=== PATIENT | male | born 1950 | race Caucasian/White ===

== ENCOUNTER 2019-12-05 09:51 | Outpatient (REF) | payer SELFPAY ==
[2019-12-05 10:50] LABS: MANUAL DIFF FLAG NO
[2019-12-05 10:58] LABS: Basophils Percent Auto 0.4 % (0-2); Eosinophils Absolute Auto 0.1 X10*3/uL (0.0-0.4); Eosinophils Percent Auto 1.5 % (0-4); Hematocrit 45.7 % (42-52); Hemoglobin 15.4 g/dl (14.0-18.0); Imm Gran Abs Auto 0.04 X10*3/uL (0.00-0.03); Imm Gran Pct Auto 0.6 % (0.0-0.4); Lymphocytes Absolute Auto 1.1 X10*3/uL (1.2-4.9); Lymphocytes Percent Auto 15.2 % (20-40); Mean Corpuscular HGB Conc 33.7 g/dl (31.0-36.0); Mean Corpuscular Hemoglobin 32.3 pg (27.0-33.0); Mean Corpuscular Volume 95.8 fL (80-98); Mean Platelet Volume 9.7 fL (9.4-12.4); Monocytes Absolute Auto 0.8 X10*3/uL (0.1-1.2); Monocytes Percent Auto 11.4 % (2-11); Neutrophils Percent Auto 70.9 % (45-73); Platelet Count 266 X10*3/uL (160-400); Red Blood Count 4.77 X10*6/uL (4.60-5.80); Red Cell Distribution Width 12.3 % (11.0-16.0); White Blood Count 7.1 X10*3/uL (4.8-10.8)
[2019-12-05 12:02] LABS: Alanine Aminotransferase 22 U/L (0-40); Albumin Level 4.6 g/dL (3.5-5.0); Alkaline Phosphatase 84 U/L (39-117); Anion Gap 13 (12-20); Aspartate Amino Transferase 29 U/L (5-37); Bilirubin Total 1.1 mg/dL (0.0-1.0); Blood Urea Nitrogen 16 mg/dL (9-16); Calcium 9.2 mg/dL (8.4-10.2); Carbon Dioxide 28 mmol/L (22-29); Chloride 103 mmol/L (96-108); Cholesterol 180 mg/dL; Estimated Glomerular Filt Rate > 60; Glucose Fasting 110 mg/dL (60-99); HDL Cholesterol 53 mg/dL; LDL Cholesterol Calculated 114 mg/dl; Potassium 4.9 mmol/l (3.3-5.1); Sodium 139 mmol/L (135-145); Total Protein 7.3 g/dL (6.5-8.0); Triglycerides 65 mg/dL
== END 2019-12-05 09:52 | disposition home or self-care (01) ==
LOC: HO.MANLDS 09:51
PROVIDERS: PCP Physician Assistant; Visit Provider Physician Assistant
DX: Z00.00 Encounter for general adult medical examination without abnormal findings (principal); Z13.6 Encounter for screening for cardiovascular disorders
CPT/HCPCS: 36415; 80053; 80061; 85025

== ENCOUNTER 2021-04-29 09:46 | Outpatient (REF) | payer SELFPAY ==
[2021-04-29 11:05] LABS: MANUAL DIFF FLAG NO
[2021-04-29 11:11] LABS: Basophils Absolute Auto 0.1 X10*3/uL (0.0-0.2); Basophils Percent Auto 0.6 % (0-2); Eosinophils Absolute Auto 0.2 X10*3/uL (0.0-0.4); Eosinophils Percent Auto 2.1 % (0-4); Hematocrit 46.2 % (42.0-52.0); Hemoglobin 15.7 g/dl (14.0-18.0); Imm Gran Abs Auto 0.03 X10*3/uL (0.00-0.03); Imm Gran Pct Auto 0.4 % (0.0-0.4); Lymphocytes Absolute Auto 1.2 X10*3/uL (1.2-4.9); Lymphocytes Percent Auto 15.1 % (20-40); Mean Corpuscular Hemoglobin 32.6 pg (27.0-33.0); Mean Platelet Volume 9.6 fL (9.4-12.4); Monocytes Absolute Auto 0.7 X10*3/uL (0.1-1.2); Neutrophils Absolute Auto 5.8 x10*3/uL (2.0-8.3); Neutrophils Percent Auto 72.8 % (45-73); Platelet Count 247 X10*3/uL (160-400); Red Blood Count 4.81 X10*6/uL (4.60-5.80); Red Cell Distribution Width 12.1 % (11.0-16.0)
[2021-04-29 12:54] LABS: Alanine Aminotransferase 24 U/L (0-40); Albumin Level 4.5 g/dL (3.5-5.0); Alkaline Phosphatase 91 U/L (39-117); Anion Gap 15 (12-20); Aspartate Amino Transferase 29 U/L (5-37); Bilirubin Total 1.5 mg/dL (0.0-1.0); Blood Urea Nitrogen 17 mg/dL (9-16); Calcium 9.8 mg/dL (8.4-10.2); Carbon Dioxide 29 mmol/L (22-29); Chloride 101 mmol/L (96-108); Cholesterol 175 mg/dL; Estimated Glomerular Filt Rate > 60; Glucose Fasting 91 mg/dL (60-99); HDL Cholesterol 56 mg/dL; LDL Cholesterol Calculated 105 mg/dl; Potassium 4.6 mmol/L (3.3-5.1); Sodium 140 mmol/L (135-145); Total Protein 7.3 g/dL (6.5-8.0); Triglycerides 71 mg/dL
== END 2021-04-29 09:47 | disposition home or self-care (01) ==
LOC: HO.MANLDS 09:46
PROVIDERS: PCP Physician Assistant; Visit Provider Physician Assistant
DX: Z00.00 Encounter for general adult medical examination without abnormal findings (principal); Z13.220 Encounter for screening for lipoid disorders
CPT/HCPCS: 36415; 80053; 80061; 85025

== ENCOUNTER 2022-05-03 09:41 | Outpatient (REF) | payer SELFPAY ==
[2022-05-03 11:14] LABS: Estimated Average Glucose 100 mg/dL; Hemoglobin A1c % 5.1 %
[2022-05-03 11:57] LABS: Anion Gap 13 (12-20); Blood Urea Nitrogen 12 mg/dL (9-16); Calcium 9.3 mg/dL (8.4-10.2); Carbon Dioxide 29 mmol/L (22-29); Chloride 103 mmol/L (96-108); Estimated Glomerular Filt Rate > 60; Glucose Random 97 mg/dL (60-115); Potassium 3.9 mmol/L (3.3-5.1); Sodium 141 mmol/L (135-145)
[2022-05-03 12:13] LABS: Prostate Specific Antigen 0.53 ng/mL (<0.05-4.0)
== END 2022-05-03 09:42 | disposition home or self-care (01) ==
LOC: HO.MANLDS 09:41
PROVIDERS: Visit Provider Physician Assistant
DX: Z12.5 Encounter for screening for malignant neoplasm of prostate (principal); R82.998 Other abnormal findings in urine; R81 Glycosuria
CPT/HCPCS: 36415; 80048; 83036; 84153

== ENCOUNTER 2023-05-18 09:22 | Outpatient (REF) | payer SELFPAY ==
[2023-05-18 12:58] LABS: MANUAL DIFF FLAG NO
[2023-05-18 13:06] LABS: Basophils Percent Auto 0.6 % (0-2); Eosinophils Absolute Auto 0.1 X10*3/uL (0.0-0.4); Eosinophils Percent Auto 1.2 % (0-4); Hematocrit 47.5 % (42.0-52.0); Hemoglobin 16.2 g/dl (14.0-18.0); Imm Gran Abs Auto 0.03 X10*3/uL (0.00-0.03); Imm Gran Pct Auto 0.5 % (0.0-0.4); Lymphocytes Absolute Auto 1.1 X10*3/uL (1.2-4.9); Lymphocytes Percent Auto 16.2 % (20-40); Mean Corpuscular HGB Conc 34.1 g/dl (31.0-36.0); Mean Corpuscular Hemoglobin 32.5 pg (27.0-33.0); Mean Corpuscular Volume 95.4 fL (80.0-98.0); Mean Platelet Volume 9.8 fL (9.4-12.4); Monocytes Absolute Auto 0.7 X10*3/uL (0.1-1.2); Monocytes Percent Auto 9.8 % (2-11); Neutrophils Absolute Auto 4.8 x10*3/uL (2.0-8.3); Neutrophils Percent Auto 71.7 % (45-73); Platelet Count 277 X10*3/uL (160-400); Red Blood Count 4.98 X10*6/uL (4.60-5.80); Red Cell Distribution Width 12.3 % (11.0-16.0); White Blood Count 6.7 X10*3/uL (4.8-10.8)
[2023-05-18 13:14] LABS: Estimated Average Glucose 94 mg/dL; Hemoglobin A1c % 4.9 % (<6.0)
[2023-05-18 13:38] LABS: Alanine Aminotransferase 29 U/L (0-40); Albumin Level 4.4 g/dL (3.5-5.0); Alkaline Phosphatase 96 U/L (39-117); Anion Gap 16 (12-20); Aspartate Amino Transferase 42 U/L (5-37); Bilirubin Total 1.3 mg/dL (0.0-1.0); Blood Urea Nitrogen 17 mg/dL (9-16); Calcium 9.6 mg/dL (8.4-10.2); Carbon Dioxide 25 mmol/L (22-29); Chloride 101 mmol/L (96-108); Cholesterol 186 mg/dL (<200); Estimated Glomerular Filt Rate > 60; Glucose Random 89 mg/dL (60-115); HDL Cholesterol 62 mg/dL (>40); LDL Cholesterol Calculated 111 mg/dL (<100); Potassium 5.4 mmol/L (3.3-5.1); Sodium 137 mmol/L (135-145); Total Protein 7.9 g/dL (6.5-8.0); Triglycerides 68 mg/dL (<150)
[2023-05-18 13:51] LABS: Prostate Specific Antigen 0.64 ng/mL (<0.05-4.0)
== END 2023-05-18 09:23 | disposition home or self-care (01) ==
LOC: HO.MANLDS 09:22
PROVIDERS: Visit Provider Physician Assistant
DX: Z00.00 Encounter for general adult medical examination without abnormal findings (principal); Z12.5 Encounter for screening for malignant neoplasm of prostate; Z13.6 Encounter for screening for cardiovascular disorders
CPT/HCPCS: 36415; 80053; 80061; 83036; 84153; 85025

== ENCOUNTER 2024-06-06 09:48 | Outpatient (REF) | payer SELFPAY ==
--- OUTSIDE RECORDS SUMMARY | 2024-06-06 10:46 | XMS_ITS | Data Portability ---
Author Organization [facility] Home Service Address [address] [place] [address] Assessment No assessment recorded. Plan of Treatment Reminders Order Date Submit Date Provider Last Modified By Organization Details Last Modified Time Details Appointments ANNUAL EXAM 2024 09:15A FAISAL LINDSEY Not available Not available Not available ANNUAL EXAM 2025 09:00A FAISAL LINDSEY Not available Not available Not available Lab CMP, serum or plasma 2024 025 [facility], [address] [place] [address], [id number], 06/06/2024 09:39:26 CBC w/ auto diff 2024 025 [facility], [address] [place] [address], [id number], 06/06/2024 09:39:26 lipid panel, blood 2024 025 [facility], [address] [place] [address], [id number], 06/06/2024 09:39:26 CBC w/ auto diff 2023 024 [facility], [address] [place] [address], [id number], 05/18/2023 09:11:52 CMP, serum or plasma 2023 024 [facility], [address] [place] [address], [id number], 05/19/2023 11:29:48 lipid panel, blood 2023 024 [facility], [address] [place] [address], [id number], 05/18/2023 09:11:52 PSA, serum or plasma 2023 024 [facility], [address] [place] [address], [id number], 05/18/2023 09:11:52 hemoglobi n A1c, QN, blood 2023 024 [facility], [address] [place] [address], [id number], 05/18/2023 09:11:52 BMP, serum or plasma 2022 023 [facility], [address] [place] [address], [id number], 05/04/2022 11:46:49 PSA, serum or plasma 2022 023 [facility], [address] [place] [address], [id number], 05/04/2022 11:46:50 hemoglobi n A1c, QN, blood 2022 023 [facility], [address] [place] [address], [id number], 05/04/2022 11:46:49 urinalysi s complete, reflex culture 2022 023 [facility], [address] [place] [address], [id number], 05/03/2022 09:20:34 CMP, serum or plasma 2021 022 [facility], [address] [place] [address], [id number], 05/01/2021 07:12:44 CBC w/ auto diff 2021 022 [facility], [address] [place] [address], [place], [id number], 04/29/2021 09:25:09 lipid panel, blood 2021 022 [facility], [address] [place] [address], [place], [id number], 04/29/2021 09:25:09 lipid panel, blood 2019 [place] Not available 12/12/2019 17:46:34 CMP, serum or plasma 2019 [place] Not available 12/12/2019 17:46:34 CBC w/ auto diff 2019 [place] Not available 12/12/2019 17:46:34 Referral None recorded. Procedures None recorded. Surgeries None recorded. Imaging None recorded. Medication Orders lisinopri l 10 mg tablet 2024 025 [place] [id number], [address] [place], [place], [id number], 06/06/2024 09:41:56 lorazepam 0.5 mg tablet 2022 023 [place] [id number], [address], [place], [id number], 05/03/2022 09:19:12 Patient TargetsNo targets recorded. Patient Instructions Encounter Date Encounter Id Patient Instructions Last Modified By Organization Details Last Modified Time 06/06/2024 [id number] advance care planning: care instructions [email or web address] Not available 06/06/2024 09:32:18 Reason for Referral None Reported. Results Created Date Observation Date Name Description Value Unit Range Abnormal Flag Note LastModifiedBy Organization Detail LastModifiedTime Result Notes None recorded. Problems Name Problem SNOMED Code Status Onset Date Resolution Date Notes Provider Name and Address Organization Details Recorded Time Anxiety 86192985 Active 2017 Susan baker [place] - [facility] 8 15:55:20 Impaired fasting glycemia 244385182 Active [address] [facility] 8 15:55:31 Essential hypertens ion 42798150 Active [address] [facility] 8 15:55:40 Urine consisten cy frothy 535355609907 102 Active 2022 FAISAL HOOVER [address] [place], [address], [facility] 3 09:12:39 Problem Notes None recorded. Medical Equipment None Reported. Allergies No known drug allergies Medications Name Sig Start Date Stop Date Status Note LastModified by Organization Details LastModified Time sertraline 100 mg tablet Take 1 tablet every day by oral route. 05/31 completed Not Available Not Available Not Available lorazepam 0.5 mg tablet TAKE 1 TABLET BY MOUTH EVERY 6 TO 8 HOURS NEEDED FOR ANXIETY 2024 active Not Available Not Available Not Avai lable lisinopril 10 mg tablet TAKE 1 TABLET BY MOUTH DAILY 2024 active Not Available Not Available Not Avai lable magnesium occasiona lly; OTC; glycinate active Not Available Not Available No t Available Fish Oil daily; OTC 06/06 completed Not Available Not Available Not Available Vitamin D3 daily; OTC active Not Available Not Available No t Available multivitami n qd active Not Available Not Available Not Available Vitals Date Recorded Body height Body mass index (BMI) Body weight Heart rate Oxygen saturation Oxygen saturation in Arterial blood by Pulse oximetry Systolic blood pressure Diastolic blood pressure Provider Name and Address Organization Details Last Updated DateTime 0 187.96 cm 23.1 kg/m2 59278.3 5 g 120 /min 98 % 98 % 148 mm[Hg] 80 mm[Hg] Susan Peguero [facility] 0 08:59:56 Date Recorded Body height Body mass index (BMI) Body weight Oxygen saturation Oxygen saturation in Arterial blood by Pulse oximetry Heart rate Systolic blood pressure Diastolic blood pressure Provider Name and Address Organization Details Last Updated DateTime 2 187.96 cm 22 kg/m2 86389.0 1 g 96 % 96 % 121 /min 150 mm[Hg] 70 mm[Hg] Ayana Heaton [facility] 2 09:09:43 Date Recorded Body height Body mass index (BMI) Body weight Oxygen saturation Oxygen saturation in Arterial blood by Pulse oximetry Heart rate Systolic blood pressure Diastolic blood pressure Provider Name and Address Organization Details Last Updated DateTime 3 187.96 cm 22.4 kg/m2 92680.4 3 g 98 % 98 % 114 /min 118 mm[Hg] 70 mm[Hg] Ayana Heaton [facility] 3 09:07:11 Date Recorded Body weight Heart rate Oxygen saturation Oxygen saturation in Arterial blood by Pulse oximetry Systolic blood pressure Diastolic blood pressure Provider Name and Address Organization Details Last Updated DateTime 4 29499.7 1 g 96 /min 99 % 99 % 136 mm[Hg] 80 mm[Hg] Juana Rasheed [facility] 4 08:58:14 Date Recorded Body height Body mass index (BMI) Body weight Heart rate Oxygen saturation Oxygen saturation in Arterial blood by Pulse oximetry Systolic blood pressure Diastolic blood pressure Provider Name and Address Organization Details Last Updated DateTime 5 187.96 cm 21.8 kg/m2 29778.7 g 114 /min 97 % 97 % 160 mm[Hg] 92 mm[Hg] Juana Rasheed [facility] 5 09:12:57 Social History Question Answer Notes LastModified by Organizat ion Details LastModified Time Tobacco Smoking Status Never Smoker Not Available [email or web address] 01/01/2020 03:36:24 What Was The Date Of Your Most Recent Tobacco Screening? 06/06/2024 [email or web address] Information not available 06/06/2024 Sex: Unknown Functional Status None recorded. Mental Status None recorded. Family History Nothing Reported. Medical History No medical history recorded. Immunizations Vaccine Type Date Status Note Provider Nam e and Address Organization Details Recorded Time zoster recombinant 06/24/19 18 completed FAISAL HOOVER [address] [place] [address], [id number], [facility] 04/29/2021 09:12:41 zoster recombinant 12/14/19 18 completed FAISAL HOOVER [address] [place] [address], [phone], [facility] 04/29/2021 09:12:58 pneumococcal polysaccharide PPV23 11/27/19 17 completed FAISAL HOOVER [address] [place] [address], [phone], [facility] 04/29/2021 09:13:26 COVID-19, mRNA, LNP-S, PF, 30 mcg/0.3 mL dose 09/17/19 21 completed FAISAL HOOVER [address] [place] [address], [phone], [facility] 04/29/2021 09:14:06 COVID-19, mRNA, LNP-S, PF, 30 mcg/0.3 mL dose 10/18/19 21 completed FAISAL HOOVER [address] [place] [address], [phone], [facility] 04/29/2021 09:14:23 Tdap 11/27/19 17 completed LAURA Luis [address] [place] [address], [phone], [facility] 06/29/2017 09:24:16 Pneumococcal conjugate PCV 13 11/27/19 17 completed LAURA Luis [address] [place] [address], [phone], [facility] 06/29/2017 09:24:46 zoster live 06/24/19 18 completed LAURA Luis [address] [place] [address], [phone], [facility] 06/29/2017 09:26:10 Influenza, split virus, quadrivalent, preservative 11/27/19 18 completed Carly Nolen [facility] 05/31/2018 10:02:48 Past Encounters Encounter ID Performer Location Encounter Start Date Encounter Closed Date Diagnosis/Indication Diagnosis SNOMED-CT Code Diagnosis ICD10 Code Diagnosis Note [id number] Sabiha Kelby [facility] [address],[place] [address] 06/29/2017 08:59:47 06/29/2017 09:44:17 Impaired fasting glycemia 639770307 R73.01 will test today has been better with diet has been exercising more Anxiety 21470554 F41.9 stable on current regimine continue sertraline 100 continue lorazepam 0.5 bid prn Essential hypertension 34167187 I10 stable on current regimen continue lisinopril 10 mg qd [id number] May [facility] [address] [address],[place] [employer] [place] [address] 09/28/2017 09:06:10 09/28/2017 10:45:38 Impaired fasting glycemia 124996808 R73.01 labs all normal will continue to monitor reinforced healthy diet and continue to exercise Anxiety 40724276 F41.9 stable on current regimine continue sertraline 100 continue lorazepam 0.5 bid prn Essential hypertension 20683803 I10 stable on current regimen continue lisinopril 10 mg qd continues to exercise [id number] Demetrio Ramirez DO [facility] [address],[place] [facility] [place] [address] 05/31/2018 09:51:06 05/31/2018 10:23:33 Impaired fasting glycemia 244684209 R73.01 here for recheck and has not gotten any lab work at all due to lack of insurance Anxiety 71662931 F41.9 seems to be in control right now Essential hypertension 25046096 I10 stable on low dose of lisinopril and is able to take without side effects [id number] May [facility] [address],[place] [facility] [place] [address] 11/29/2018 08:49:02 11/29/2018 11:23:41 Impaired fasting glycemia 294477222 R73.01 labs all normal will continue to monitor reinforced healthy diet and continue to exercise Anxiety 04574588 F41.9 continue intermitte nt lorazepam as needed Essential hypertension 97429535 I10 stable continue eating well continues to exercise Adult heal th examination 183453310 Z00.00 no insurance right now, will [place] [id number] JHONATHAN DAVE, FAISAL [facility] [address], [facility] [address] 12/05/2019 08:53:09 12/05/2019 09:27:56 Adult health examination 897347702 Z00.00 BP a little elevated, the patient was nervous today at exam, HR elevated as well says he's always nervous at exams will monitor Screening for cardiovascular system disease 967214929 Z13.6 will check labs [id number] FAISAL HOOVER [facility] [address] [place] [address], [place] [address] 04/29/2021 09:01:57 04/29/2021 15:17:48 Active or passive immunization 250146322 Z23 up to date Adult [facility] examination 763721170 Z00.00 BP a little elevated, the patient was nervous today at exam, HR elevated as well says he's always nervous at exams will monitor [id number] FAISAL HOOVER [facility] [address] [place] [address], [place] [address] 05/03/2022 08:59:42 05/03/2022 16:42:22 Active or passive immunization 064607503 Z23 up to date Adult [facility] examination 677152910 Z00.00 BP a little elevated, the patient was nervous today at exam, HR elevated as well says he's always nervous at exams will monitor Urine cons istency frothy 8644340034 62983 R82.998 will set up with lab work Anxiety 18726913 F41.9 will set up with ativan scriptpays out of pocket [id number] FAISAL HOOVER [facility] [address] [place] [address],[place] [address] 05/18/2023 08:49:02 05/18/2023 11:34:24 Essential hypertension 06266677 I10 BP is doing well Adult [facility] examination 673120270 Z00.00 BP a little elevated, the patient was nervous today at exam, HR elevated as well (not terrible, tends to fluctuate in office) says he's always nervous at exams will monitor [id number] FAISAL HOOVER [facility] [address] [place] [address],[place] [address] 06/06/2024 08:57:09 06/06/2024 09:43:40 Active or passive immunization 756446817 Z23 up to date Adult heal th examination 314419924 Z00.00 BP a little elevated, the patient was nervous today at exam, HR elevated as well (not terrible, tends to fluctuate in office) says he's always nervous at exams will monitor Essential hypertension 53055138 I10 BP is doing well Health Concerns Section Related Observation LastModified by Organization Detai ls LastModified Time None Recorded Concern Status LastModified by Organization Details LastModified Time None Recorded Advance Directives Directive None Recorded Payers Encounter Date Sequence Insurance Name Policy Number Policy Strange Covered Member ID Strange Member ID Guarantor Name 12/05/2019 [employer]IDING FEE SCHEDULE - DISCOUNT Pj Whaley 05/03/2022 SLIDING FEE SCHEDULE - DISCOUNT Pj Whaley 05/18/2023 SLIDING FEE SCHEDULE - DISCOUNT Pj Whaley Notes Date Note Type Note Provider Name a nd Address Organization Details Recorded Time 0 text/html Annual WellnessReported bypatient.Diet and Nutrition:discussed vitamin and supplement use; discussed portion control; discussed maintaining calcium balance; discussed diet improvement; the patient reports he tries to be good about portion size and monitoring nutritonal labels Fracture Risk:no history of fractures; no recent explained fracture; no sudden unexplained fractures; no previous musculoskeletal injuries Physical Activity:exercises on a regular basis; recent increase in physical activity; recent increase in exercise during the pandemic has been walking Additional Lifestyle Factors:no tobacco use; no alcohol intake; stopped drinking Depression Risk:never feels sad, empty, or tearful; no loss of interest in activities; no significant changes in weight; no sleep disturbances or insomnia; no agitation; no loss of energy; no feelings of worthlessness or guilt; no thoughts of suicide;history of mood disorders;history of depression; takes lorazepam for acute episodes of anxiety Hearing:no loss of hearing Vision:no vision problems; wears eye glasses no contacts last eye exam was three years ago FAISAL HOOVER [address] [place], [address], [facility] 12/05/2019 09:19:39 2 text/html Annual WellnessReported bypatient.Diet and Nutrition:healthy diet; discussed vitamin and supplement use; discussed portion control; discussed maintaining calcium balance; discussed diet improvement; has been eating right and exercising Fracture Risk:no history of fractures; no recent explained fracture; no sudden unexplained fractures; no previous musculoskeletal injuries Physical Activity:exercises on a regular basis; recent increase in physical activity; good physical condition; discussed weightbearing activities; discussed exercise habits; walks for a few hours a day and uses a skii machine and a stationary bike as well Additional Lifestyle Factors:no tobacco use; no alcohol intake Depression Risk:never feels sad, empty, or tearful; no loss of interest in activities; no significant changes in weight; no sleep disturbances or insomnia; no agitation; no loss of energy; no feelings of worthlessness or guilt; no thoughts of suicide;history of mood disorders;history of depression Hearing:no loss of hearing; can use flonase for the tinnitus Vision:no vision problems FAISAL HOOVER [address] [place] [address], [phone] 04/29/2021 09:29:33 3 text/html Annual WellnessReported bypatient.Diet and Nutrition:healthy diet; discussed vitamin and supplement use; discussed portion control; discussed maintaining calcium balance; discussed diet improvement Fracture Risk:no history of fractures; no recent explained fracture; no sudden unexplained fractures; no previous musculoskeletal injuries Physical Activity:exercises on a regular basis; recent increase in physical activity; good physical condition Additional Lifestyle Factors:no tobacco use; drinks alcohol (mild-moderate) Depression Risk:never feels sad, empty, or tearful; no loss of interest in activities; no significant changes in weight; no sleep disturbances or insomnia; no agitation; no loss of energy; no thoughts of suicide;feelings of worthlessness or guilt;history of mood disorders;history of depression Hearing:no loss of hearing Vision:no vision problems the patient reports he doesn't have health insurance the patient reports that he is very anxious about being here and just in generalhe does not have health insurance so everything it self-pay (very back and forth about meds and blood tests) some minor back pain after shoveling FAISAL HOOVER [address] [place] [address], [phone] 05/03/2022 09:30:14 4 text/html Annual WellnessReported bypatient.Diet and Nutrition:healthy diet; discussed vitamin and supplement use; discussed portion control; discussed maintaining calcium balance; discussed diet improvement Fracture Risk:no history of fractures; no recent explained fracture; no sudden unexplained fractures; no previous musculoskeletal injuries Physical Activity:exercises on a regular basis; recent increase in physical activity; good physical condition; discussed weightbearing activities; discussed exercise habits Depression Risk:never feels sad, empty, or tearful; no loss of interest in activities; no significant changes in weight; no sleep disturbances or insomnia; no agitation; no loss of energy; no feelings of worthlessness or guilt; no thoughts of suicide; no history of depression; no history of mood disorders Hearing:no loss of hearing; mild tinnitus in the left ear Vision:no vision problemsNotes:last dental appt was a couple years ago, hasn't had one BP is excellent today FAISAL HOOVER [address] [place], [address], [facility] 05/18/2023 09:15:57 5 text/html Annual WellnessReported bypatient.Diet and Nutrition:healthy diet; discussed vitamin and supplement use; discussed portion control; discussed maintaining calcium balance; discussed diet improvement Fracture Risk:no history of fractures; no recent explained fracture; no sudden unexplained fractures; no previous musculoskeletal injuries Physical Activity:exercises on a regular basis; recent increase in physical activity; good physical condition; discussed weightbearing activities; discussed exercise habits Additional Lifestyle Factors:no tobacco use; drinks alcohol (mild-moderate) Depression Risk:never feels sad, empty, or tearful; no loss of interest in activities; no significant changes in weight; no sleep disturbances or insomnia; no agitation; no loss of energy; no feelings of worthlessness or guilt; no thoughts of suicide; no history of depression; no history of mood disorders Hearing:no loss of hearing Vision:no vision problems 134/78 R arm sitting recheck FAISAL HOOVER [address] [place], [address], [facility] 06/06/2024 09:43:39
--- OUTSIDE RECORDS SUMMARY | 2024-06-06 10:46 | XMS_ITS | Continuity of Care Document ---
Author Organization [facility] Address [address] [place] [address] [place] [address] Assessment No assessment recorded. Plan of Treatment Reminders Order Date Submit Date Provider Last Modified By Organization Details Last Modified Time Details Appointments ANNUAL EXAM 2024 09:15A M FAISAL HOOVER Not available Not available Not available ANNUAL EXAM 2025 09:00A M FAISAL HOOVER Not available Not available Not available Lab CMP, serum or plasma 2024 025 [facility], [address] [place] [address], [id number], 06/06/2024 09:39:26 CBC w/ auto diff 2024 025 [facility], [address] [place] [address], [id number], 06/06/2024 09:39:26 lipid panel, blood 2024 025 [facility], [address] [place] [address], [id number], 06/06/2024 09:39:26 Referral None recorded. Procedures None recorded. Surgeries None recorded. Imaging None recorded. Medication Orders lisinopri l 10 mg tablet 2024 025 [id number], [address], [place], [id number], 06/06/2024 09:41:56 Patient TargetsNo targets recorded. Patient Instructions Encounter Date Encounter Id Patient Instructions Last Modified By Organization Details Last Modified Time 06/06/2024 [id number] advance care planning: care instructions [email or web address] Not available 06/06/2024 09:32:18 Reason for Referral None Reported. Problems Name Problem SNOMED Code Status Onset Date Resolution Date Notes Provider Name and Address Organization Details Recorded Time Anxiety 46275257 Active [address] [facility] 8 15:55:20 Impaired fasting glycemia 604608117 Active [address] [facility] 8 15:55:31 Essential hypertens ion 53201057 Active [address] [facility] 8 15:55:40 Urine consisten cy frothy 458680386454 102 Active 2022 FAISAL HOOVER [address] [place] [address], [phone], [facility] 3 09:12:39 Problem Notes None [...] Updated DateTime 5 187.96 cm 21.8 kg/m2 91472.7 g 114 /min 97 % 97 % 160 mm[Hg] 92 mm[Hg] Juana Iqbal [facility] 04/09/202 5 09:12:57 Social History Question Answer Notes LastModified by Organizat ion Details LastModified Time Tobacco Smoking Status Never Smoker Not Available [facility] 01/01/2020 03:36:24 What Was The Date Of Your Most Recent Tobacco Screening? 06/06/2024 [email or web address] Information not available 06/06/2024 Sex: Unknown Functional Status None recorded. Mental Status None recorded. Family History Nothing Reported. Medical History No medical history recorded. Immunizations Vaccine Type Date Status Note Provider Nam e and Address Organization Details Recorded Time zoster recombinant 06/24/19 18 completed FAISAL HOOVER [address] [place] [address], [phone], [facility] 04/29/2021 09:12:41 zoster recombinant 12/14/19 18 completed FAISAL HOOVER [address] [place] [address], [phone], [facility] 04/29/2021 09:12:58 pneumococcal polysaccharide PPV23 11/27/19 17 completed FAISAL HOOVER [address] [place] [address], [phone], [facility] 04/29/2021 09:13:26 COVID-19, mRNA, LNP-S, PF, 30 mcg/0.3 mL dose 09/17/19 21 completed FAISAL HOOVER [address] [place] [address], [phone], [facility] 04/29/2021 09:14:06 COVID-19, mRNA, LNP-S, PF, 30 mcg/0.3 mL dose 10/18/19 21 completed FAISAL HOOVER [address] [place] [address], [phone], [facility] 04/29/2021 09:14:23 Tdap 11/27/19 17 completed LAURA Luis [address] [place] [address], [phone], [facility] 06/29/2017 09:24:16 Pneumococcal conjugate PCV 13 11/27/19 17 completed LAURA Luis [address] [place] [address] [place], [phone], [facility] 06/29/2017 09:24:46 zoster live 06/24/19 18 completed LAURA Luis [address] [place], [phone], [facility] 06/29/2017 09:26:10 Influenza, split virus, quadrivalent, preservative 11/27/19 18 [facility] 10:02:48 Past Encounters Encounter ID Performer Location Encounter Start Date Encounter Closed Date Diagnosis/Indication Diagnosis SNOMED-CT Code Diagnosis ICD10 Code Diagnosis Note [id number] JHONATHAN DAVE [facility] [address] [facility],[place] [address] 06/06/2024 08:57:09 06/06/2024 09:43:40 Active or passive immunization 038521070 Z23 up to date Adult heal th examination 589729462 Z00.00 BP a little elevated, the patient was nervous today at exam, HR elevated as well (not terrible, tends to fluctuate in office) says he's always nervous at exams will monitor Essential hypertension 99953828 I10 BP is doing well Health Concerns Section Related Observation LastModified by Organization Detai ls LastModified Time None Recorded Concern Status LastModified by Organization Details LastModified Time None Recorded Payers None recorded. Notes Date Note Type Note Provider Name a nd Address Organization Details Recorded Time 5 text/html Annual WellnessReported bypatient.Diet and Nutrition:healthy [...] R arm sitting recheck FAISAL HOOVER [address] [place], [address], [facility] 06/06/2024 09:43:39
[2024-06-06 13:34] LABS: MANUAL DIFF FLAG NO
[2024-06-06 13:48] LABS: Basophils Percent Auto 0.6 % (0-2); Eosinophils Absolute Auto 0.1 X10*3/uL (0.0-0.4); Hematocrit 45.1 % (42.0-52.0); Hemoglobin 15.8 g/dl (14.0-18.0); Imm Gran Abs Auto 0.04 X10*3/uL (0.00-0.03); Imm Gran Pct Auto 0.6 % (0.0-0.4); Lymphocytes Absolute Auto 1.3 X10*3/uL (1.2-4.9); Lymphocytes Percent Auto 19.2 % (20-40); Mean Corpuscular Hemoglobin 32.9 pg (27.0-33.0); Monocytes Absolute Auto 0.8 X10*3/uL (0.1-1.2); Monocytes Percent Auto 11.5 % (2-11); Neutrophils Absolute Auto 4.3 x10*3/uL (2.0-8.3); Neutrophils Percent Auto 66.1 % (45-73); Platelet Count 264 X10*3/uL (160-400); Red Cell Distribution Width 12.4 % (11.0-16.0); White Blood Count 6.5 X10*3/uL (4.8-10.8)
[2024-06-06 14:21] LABS: Alanine Aminotransferase 38 U/L (0-40); Albumin Level 4.6 g/dL (3.5-5.0); Alkaline Phosphatase 88 U/L (39-117); Anion Gap 12 (12-20); Aspartate Amino Transferase 40 U/L (5-37); Bilirubin Total 1.7 mg/dL (0.0-1.0); Blood Urea Nitrogen 14 mg/dL (9-16); Calcium 9.5 mg/dL (8.4-10.2); Carbon Dioxide 26 mmol/L (22-29); Chloride 104 mmol/L (96-108); Cholesterol 173 mg/dL (<200); Estimated Glomerular Filt Rate > 60; Glucose Random 98 mg/dL (60-115); HDL Cholesterol 58 mg/dL (>40); LDL Cholesterol Calculated 101 mg/dL (<100); Potassium 3.6 mmol/L (3.3-5.1); Sodium 138 mmol/L (135-145); Total Protein 7.8 g/dL (6.5-8.0); Triglycerides 73 mg/dL (<150)
== END 2024-06-06 09:49 | disposition home or self-care (01) ==
LOC: HO.MANLDS 09:48
PROVIDERS: Visit Provider Internal Medicine
DX: Z00.00 Encounter for general adult medical examination without abnormal findings (principal); Z13.6 Encounter for screening for cardiovascular disorders
CPT/HCPCS: 36415; 80053; 80061; 85025